=== PATIENT | female | born 1965 | race Caucasian/White ===

== ENCOUNTER 2024-03-28 17:51 | Emergency (ER) | payer OTHER, SELFPAY ==
--- NOTE | ~2024-03-28 | CT_ITS ---
EXAMINATION: CT brain wo con DATE: 03/28/2024 18:58 INDICATION: fall . TECHNIQUE: Computed tomography (CT) of the head was performed without intravenous contrast. The mA wa s adjusted according to patient size. Iterative reconstruction technique was employed. The dose-lengt h product was 605.33 mGy-cm. COMPARISON: None. FINDINGS: No acute intracranial hemorrhage. Small somewhat serpiginous hyperdensity in a posterior left frontal sulcus. No hydrocephalus, mass, or herniation. No acute ischemic infarct. Unremarkable dural venous sinus attenuation. No acute osseous abnormality. The aerated spaces are clear. Mild bilateral basal ganglia calcifications. IMPRESSION: Small volume subarachnoid hemorrhage in a posterior left frontal sulcus. Results reported telephonically to Melonie Bryson PAC by Dr. Comer at 7:09 PM on 03/28/2024. Reviewed, dictated and finalized at location K. D CROP II FARMWORKER
--- NOTE | ~2024-03-28 | CT_ITS ---
EXAMINATION: CT facial & cervical spine wo DATE: 03/28/2024 18:58 INDICATION: fall TECHNIQUE: Computed tomography (CT) of the maxillofacial region and cervical spine was performed with out intravenous contrast. Automated exposure control and iterative reconstruction technique were empl oyed. The dose-length product was 366.11 mGy-cm. COMPARISON: None FINDINGS: CERVICAL: Vertebral Body Alignment: Reversed cervical lordosis. Trace anterolistheses at C2-3 and C3-4, presuma lesley on a degenerative basis. Craniocervical and atlantoaxial alignment: Moderate degenerative change. Alignment intact. Osseous structures/fracture: No evidence of a lytic or blastic process in the visualized spine. No e vidence of acute fracture. Cervical soft tissues: The paraspinal soft tissues planes are maintained. Enlarged bilateral anterior cervical chain lymph nodes. Degenerative changes: Degenerative changes, without severe neural foraminal or central canal narrowin g. FACE: Soft Tissues: No significant superficial soft tissue swelling. Facial bones: Possible minimally displaced bilateral nasal bone fractures. No lytic or blastic proce ss. Eyes: The globes are intact. The soft tissue planes of the orbits are maintained. Paranasal Sinuses: The visualized aerated spaces are clear. Foreign Bodies: No radiopaque foreign bodies. Other Findings: None. IMPRESSION: No acute fracture or traumatic malalignment in the cervical spine. Bilateral anterior cervical chain lymphadenopathy. Possible nondisplaced bilateral nasal bone fractures, correlate with pain/tenderness. Reviewed, dictated and finalized at location K. EMAN IMPRESSION: No acute fracture or traumatic malalignment in the cervical spine. Bilateral anterior cervical chain lymphadenopathy. Possible nondisplaced bilateral nasal bone fractures, correlate with pain/tende rness.
--- NOTE | ~2024-03-28 | XR_ITS ---
EXAM: XR knee LT min 4V DATE: 03/28/2024 19:09 HISTORY: left knee pain, fall . COMPARISON: None available. FINDINGS: Decreased mineralization. No fracture or dislocation. No lytic or blastic lesion. Tricompa rtmental osteoarthritis, severe in the medial compartment. Trace joint fluid. No erosion or periostea l change. Soft tissues within normal limits. IMPRESSION: No acute osseous finding in the left knee. Reviewed, dictated and finalized at location K. PACKER
--- NOTE | ~2024-03-28 | XR_ITS ---
EXAMINATION: XR chest 2V Exam Date/Time: 03/28/2024 18:54 LUNCH TRUCK DRIVER HISTORY: fall Comparison: None. RESULT: Lines, tubes, and devices: Cholecystectomy clips. Lungs and pleura: Mild diffuse reticular opacities. Cardiomediastinal silhouette: Stable. Other: No acute osseous or upper abdominal finding. Severe osteopenia and scoliosis. IMPRESSION: Mild interstitial edema. Reviewed, dictated and finalized at location K. H TRUCK DRIVER IMPRESSION: Mild interstitial edema.
--- NOTE | ~2024-03-28 | XR_ITS ---
EXAM: XR pelvis 1-2V DATE: 03/28/2024 19:09 HISTORY: fall . COMPARISON: None available. FINDINGS: Decreased mineralization. No fracture or dislocation. No lytic or blastic lesion. Severe s coliosis. Lumbar degenerative disc disease.. No erosion or periosteal change. Soft tissues within nor mal limits. IMPRESSION: No acute osseous finding in the pelvis. Reviewed, dictated and finalized at location K. CARPENTER
[2024-03-28 18:22] VITALS: BP 135/67; PULSE 91; RESP 16; TEMP 36.2; O2SAT 100
--- NOTE | 2024-03-28 18:24 | ED_ITS ---
HPI - Fall General Chief Complaint: Fall <Whit Moreira PA-C - Last Filed: 03/29/24 14:38> Stated Complaint: fall <Whit Moreira PA-C - Last Filed: 03/29/24 14:38> Time Seen by Provider: 03/28/24 18:24 <Whit Moreira PA-C - Last Filed: 03/29/24 14:38> Focused HPI: this is a 58-year-old female that presents to the emergency department after a fall today with head injury. Reports she missed the last step. Fell forward. Hit her head. She did not lose consciousness. Also reports left knee pain. GENERAL: Well-appearing, well-nourished, and in no acute distress. HEAD: Normocephalic. Abrasions to the left side of the face CHEST: Clear to auscultation. ?No respiratory distress. HEART: Regular rate and rhythm.? NEURO: ?Alert and oriented x3. Patient screened in triage and initial orders placed.? ?Additional care and disposition to be based upon?diagnostic testing and treatment. <Whit Moreira PA-C - Last Filed: 03/29/24 14:38> Source: patient and family ( Daughter and granddaughter) <Mile Mims MD - Last Filed: 03/29/24 22:35> Mode of arrival: ambulatory <Mile Mims MD - Last Filed: 03/29/24 22:35> Limitations: no limitations <Mile Mims MD - Last Filed: 03/29/24 22:35> History of Present Illness HPI Narrative: concur with the above with the following additions/correction: ground level fall when she tripped and missed a step at approximately 5:15pm. Her only complaint of pain at this time is on her left cheek bone which she has an abrasion. She denies a headache. No loose or broken dentition. she is not on any anticoagulation. She had been taking daily aspirin although this has been held for the last 8 days because there was consideration that she might have some moles removed. She was due to restart this medication today. She has a history of a CVA but with no residual neuro deficits. She states her knee pain is better. <Mile Mims MD - Last Filed: 03/29/24 22:35> Related Data Allergies/Adverse Reactions: Allergies Allergy/AdvReac Type Severity Reaction Status Date / Time doxycycline Allergy Unknown Unknown Verified 03/28/24 18:29 hydromorphone (From Dilaudid) Allergy Unknown Unknown Verified 03/28/24 18:29 iodine Allergy Unknown Unknown Verified 03/28/24 18:29 levofloxacin (From Levaquin) Allergy Unknown Unknown Verified 03/28/24 18:29 metronidazole (From Flagyl) Allergy Unknown Unknown Verified 03/28/24 18:29 Penicillins Allergy Unknown Unknown Verified 03/28/24 18:29 Sulfa (Sulfonamide Allergy Unknown Unknown Verified 03/28/24 18:29 Antibiotics) <Whit Moreira PA-C - Last Filed: 03/29/24 14:38> Review of Systems Review of Systems: All systems reviewed & are unremarkable except as noted in HPI and below <Whit Moreira PA-C - Last Filed: 03/29/24 14:38> PMFSH Past Medical History Medical History: Medical History History of CVA (cerebrovascular accident) approx 2015 <Whit Moreira PA-C - Last Filed: 03/29/24 14:38> Surgical History Surgical History: Surgical History History of hand surgery <Whit Moreira PA-C - Last Filed: 03/29/24 14:38> Social History Social History: Social History Additional occupation/education comments: Works at [employer] <Whit Moreira PA-C - Last Filed: 03/29/24 14:38> Exam Narrative: GENERAL: Well-appearing, well-nourished, and in no acute distress. HEAD: Abrasion overlying left cheek. EYES: Non injected, non icteric ENT: Nares clear, no rhinorrhea or epistaxis. No septal hematoma . no broken or loose dentition. Lip contusion with dried blood, no active bleeding/bleeding controlled NECK: Supple. CHEST: Speaking in full sentences. No respiratory distress. HEART: Regular rate and rhythm. ABDOMEN: Soft, nondistended. EXTREMITIES: Normal range of motion. No lower extremity edema. SKIN: Warm, dry, no rash. NEURO: No focal deficits. Alert and oriented x3. Follows commands. Speaks clearly without aphasia or dysarthria. Sensation intact to gross touch in bilateral extremities. Moves all extremities. No abnormal movements appreciated. PSYCH: Normal mood and affect. <Mile Mims MD - Last Filed: 03/29/24 22:35> Course Vital Signs Vital signs: Vital Signs Temperature 97.2 F L 03/28/24 18:22 Pulse Rate 91 03/28/24 18:22 Respiratory Rate 16 03/28/24 18:22 Blood Pressure 135/67 03/28/24 18:22 Pulse Oximetry 100 03/28/24 18:22 Oxygen Delivery Room Air 03/28/24 18:22 Temperature 98.4 F 03/28/24 19:31 Pulse Rate 91 03/28/24 20:06 Respiratory Rate 17 03/28/24 20:06 Blood Pressure 160/79 H 03/28/24 20:06 Pulse Oximetry 100 03/28/24 20:06 Oxygen Delivery Room Air 03/28/24 18:22 <Whit Moreira PA-C - Last Filed: 03/29/24 14:38> Vital Signs Temperature 97.2 F L 03/28/24 18:22 Pulse Rate 91 03/28/24 18:22 Respiratory Rate 16 03/28/24 18:22 Blood Pressure 135/67 03/28/24 18:22 Pulse Oximetry 100 03/28/24 18:22 Oxygen Delivery Room Air 03/28/24 18:22 Temperature 98.4 F 03/28/24 19:31 Pulse Rate 91 03/28/24 20:06 Respiratory Rate 17 03/28/24 20:06 Blood Pressure 160/79 H 03/28/24 20:06 Pulse Oximetry 100 03/28/24 20:06 Oxygen Delivery Room Air 03/28/24 18:22 <Mile Mims MD - Last Filed: 03/29/24 22:35> MDM - Fall MDM Narrative Medical decision making narrative: Patient presents after ground level fall in which she struck her face and has an abrasion. In the emergency department they are afebrile with vital signs within normal limits. Provider notified the patient has a small subarachnoid hemorrhage. She is neurovascularly intact. She also has concern for possible nasal bone fractures although without septal hematoma or epistaxis. Patient has received care through both [facility] as well as [facility] For transfer she would prefer to go to [facility] at this time. Spoke with [facility] transfer center at 19:30. Spoke with ED attending physician Dr Santamaria at 19:35. Will be an ED to ED transfer, Level 2. Phone # for RN to RN report provided. We do not have nimodipine on formulary. Will avoid hypotension and arrange transfer/transportation. patient does request to speak with me approximately 2014. She states that she thought that [facility] and [facility] with the same company she did not realize there was a different company. she states that her boss had mentioned this and for this reason it was recommended that she go to [facility]. She is in agreement and this would now be her preference. spoke with [facility] ED attending at 20:30. unfortunately, they do not even have bed availability in the ED currently for a patient who would require q.1 hour neuro checks and for this reason he is unable to officially except her at this time but will receive a phone call back when this becomes an option. In the meantime, EMS/ambulance has arrived to transport her to [facility]. I did discuss this with the patient and informed her of both and she will proceed with continuing to go to [facility]. [facility] transfer center did call at 20:55 saying we could not transfer her there however she has already left our ED. <Mile Mims MD - Last Filed: 03/29/24 22:35> Differential Diagnosis Differential diagnosis: Likely concussion without loss of consciousness and other ( Intracranial hemorrhage, maxillofacial bone fracture, nasal bone fracture; extremity fracture/dislocation) <Mile Mims MD - Last Filed: 03/29/24 22:35> Imaging Data Radiologist's impression: ITS Impressions Head CT 03/28/24 19:05 IMPRESSION: Small volume subarachnoid hemorrhage in a posterior left frontal sulcus. Results reported telephonically to Melonie VALLE by Dr. Comer at 7:09 PM on 03/28/2024. Head/Cervical Spine/Facial Bones CT 03/28/24 19:11 IMPRESSION: No acute fracture or traumatic malalignment in the cervical spine. Bilateral anterior cervical chain lymphadenopathy. Possible nondisplaced bilateral nasal bone fractures, correlate with pain/tenderness. Chest X-Ray 03/28/24 19:42 IMPRESSION: Mild interstitial edema. Knee X-Ray 03/28/24 19:44 IMPRESSION: No acute osseous finding in the left knee. Pelvis X-Ray 03/28/24 19:45 IMPRESSION: No acute osseous finding in the pelvis. <Whit Moreira PA-C - Last Filed: 03/29/24 14:38> Critical Care Time Critical Care Time Critical Care Time: No <Whit Moreira PA-C - Last Filed: 03/29/24 14:38> Discharge Plan Discharge Clinical Impression: Fall (on) (from) other stairs and steps, initial encounter, Anterior cervical lymphadenopathy Traumatic subarachnoid hemorrhage without loss of consciousness Qualifiers: Encounter type: initial encounter Qualified Code(s): S06.6X0A - Traumatic subarachnoid hemorrhage without loss of consciousness, initial encounter Fracture of nasal bones Qualifiers: Encounter type: initial encounter Fracture type: closed Qualified Code(s): S02.2XXA - Fracture of nasal bones, initial encounter for closed fracture Interstitial edema Qualifiers: Edema type: unspecified Qualified Code(s): R60.9 - Edema, unspecified <Whit Moreira PA-C - Last Filed: 03/29/24 14:38> Patient Disposition: Acute Care Hospital <Whit Moreira PA-C - Last Filed: 03/29/24 14:38> Condition: Stable <Whit Moreira PA-C - Last Filed: 03/29/24 14:38> Patient Language: B[place] <Whit Moreira PA-C - Last Filed: 03/29/24 14:38> Follow-up/Referrals: PHYSICIAN NOT ON STAFF,NONSTAFF [Non-Staff] - <Whit Moreira PA-C - Last Filed: 03/29/24 14:38> Time of Disposition: 19:47 <Whit Moreira PA-C - Last Filed: 03/29/24 14:38> 19:47 <Mile Mims MD - Last Filed: 03/29/24 22:35>
[2024-03-28 19:17] VITALS: BP 145/67; PULSE 68; RESP 17; O2SAT 100
[2024-03-28 19:31] VITALS: BP 145/67; PULSE 84; RESP 17; TEMP 36.9; O2SAT 94
[2024-03-28] MEDS: ACETAMINOPHEN 500 MG TABLET 1000 MG PO (19:42)
[2024-03-28 20:06] VITALS: BP 160/79; PULSE 91; RESP 17; O2SAT 100
--- NOTE | 2024-03-28 20:13 | PC.NURSE ---
pt states that she does not take any blood thinners- takes a daily aspirin that she hasn't taken in about a week because she was possibly getting moles removed. was supposed to start retaking today, did not take the medication.
== END 2024-03-28 21:20 | disposition short-term general hospital (02) ==
PROVIDERS: Emergency Provider Student in an Organized Health Care Education/Training Program
DX: S02.2XXA Fracture of nasal bones, initial encounter for closed fracture (principal); R60.9 Edema, unspecified; S06.6X0A Traumatic subarachnoid hemorrhage without loss of consciousness, initial encounter; R59.0 Localized enlarged lymph nodes; W10.9XXA Fall (on) (from) unspecified stairs and steps, initial encounter; Z86.73 Personal history of transient ischemic attack (TIA), and cerebral infarction without residual deficits
CPT/HCPCS: 70450; 70486; 71046; 72125; 72170; 73564; 99285; A9270